=== PATIENT | male | born 1970 | race Caucasian/White ===

== ENCOUNTER 2025-02-06 04:09 | Emergency (ER) | payer BC, SELFPAY ==
[2025-02-06 04:12] VITALS: BP 148/88
[2025-02-06 04:29] VITALS: BMI 27.0
--- NOTE | 2025-02-06 04:35 | EDRN ---
Pt says 'It doesn't matter what facet of life it is it's just a snf and I'm going from snf to snf. It's a cycle I don't feel like continuing. Every turn I try to do something to make like better, there is someone there to pull the rug out
from under me.' Pt came to ED 'because I was thinking about suicide. My therapist told me if I have the thought I should come here. I'm a crazy fucked up person, thus here we are.' Pt admits to SI 'for years.' Pt has had a plan for 'awhile' and
says it is carbon monoxide poisoning. Pt denies doing anything tonight to hurt himself. CO poisoning is 'peaceful and no one gets hurt, there is no trauma.' Pt denies alcohol and drug intake 'but if you got some I will grab some.' Pt goes to
therapy. Outpatient, no inpatient treatment 'but that sound nice. I hope you guys don't kick me out of here anytime soon.' Pt lives with soon to be ex- and children. 'It's been prolonged stress over a period of time.' Pt is a electronic security technician
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 Pt says employer is pushing for a 4th day 'and that's fucked up my schedule.' This weekend, pt says his appetite has been 'a little crazy I could eat something now.' Pt has diabetes and tries to eat
healthy. Pt takes his medications intermittently, no consistency. Pt is supposed to check his blood sugar but he does not 'life is just too chaotic.' No AH/VH/HI. Pt adds he also has a lot of gym drama going on, financial issues also. No pain.
--- NOTE | 2025-02-06 04:43 | EDRN ---
Crisis called and informed of pt consult, pt is next to be seen.
[2025-02-06 05:06] LABS: Glucose - Point of Care 90 mg/dl (70-99)
--- NOTE | 2025-02-06 05:13 | EDRN ---
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
--- NOTE | 2025-02-06 06:26 | ED.GENMED ---
History of Present Illness
General
Chief Complaint: Suicidal Ideation
Source: patient
Time Seen by Provider: 02/06/25 05:41
Nursing documentation reviewed up to this point in time: agreed with
History of Present Illness
History of Present Illness:
Pleasant 54-year-old male presents to the emergency department with suicidal ideation his life has 'fallen apart '. He states that his is in the process of leaving him. Patient states that he has been confined by all facets of his life.
Patient came to the emergency department because he was thinking about suicide again. Patient states that he has had suicidal ideation for years. He does have a rolling plan to poison himself with carbon monoxide but states that he does not feel
that he can do it. He denies any suicide attempts recently. Patient denies alcohol or drug use. He works as a network security engineerrn security.
Review of Systems
Review of Systems
Allergies reviewed?: Yes
All Other Systems: ROS reviewed and negative except as documented in HPI and ROS
Psychiatric: Reports depression, anxiety and suicidal (Intent but no current plan); Denies hallucinations
Phy Exam
General Physical Exam
General Presentation: well appearing and no apparent distress
General Skin: warm and dry
General Habitus: normal
General Mental: alert
General Hydration: appears well hydrated
ENT Exam
ENT Exam: EOMI, pharynx normal, neck supple and normocephalic
Eye Exam
Eye Exam: PERRL, cornea clear and conjunctiva normal
Cardiovascular Exam
Cardiovascular Exam: regular rate/rhythm, no edema, no murmur and normal peripheral pulses
Pulmonary Exam
Pulmonary Exam: lungs clear, no respiratory distress, no rales, no crackles, no rhonchi, no stridor, no wheezing and no cough
Gastrointestinal Exam
Gastrointestinal Exam: normal bowel sounds, non tender, soft, no organomegaly, no pulsatile mass and non distended
Neurological Exam
Neurological Exam: alert, oriented x3, no motor deficits and speech normal
Musculoskeletal Exam
Musculoskeletal Exam: full ROM and no edema
Skin Exam
Skin Exam: normal color, warm/dry, no rash and no petechia
Psychiatric Exam
Psychiatric Exam: normal mood/affect and depressed
Course
Orders/Labs/Results
Orders:
Orders
02/06/25 04:15
1:1 Observation - Suicide/ Violent Behavior As Directed
Crisis Consult Urgent
Reason for Consult: SUICIDAL
Vital Signs
Initial and Last Documented VS:
Initial Vital Signs
Temp Pulse Resp BP Pulse Ox
98.2 F 54 20 148/88 98
02/06/25 04:12 02/06/25 04:12 02/06/25 04:12 02/06/25 04:12 02/06/25 04:12
Last Documented Vital Signs
Temp Pulse Resp BP Pulse Ox
98.2 F 54 20 148/88 98
02/06/25 04:12 02/06/25 04:12 02/06/25 04:12 02/06/25 04:12 02/06/25 04:12
*Pulse Oximetry
Patient hypoxic: no (98% on room air)
*Critical Care Note
Total Time (30-74mins, 75-104mins- exclusive of procedures): Not Applicable
ED Attending Note
-
Portions of this chart may have been created with voice recognition software.� Occasional wrong word or��sound alike� substitutions may have occurred due to the inherent limitations of voice recognition software.
Discharge Plan
Departure
Patient Disposition: Psych Facility
Date of Disposition: 02/06/25
Time of Disposition: 06:26
Patient Status:: 201
Condition: Good
Discharge Problem:
Depression with suicidal ideation
Instructions: Suicide Prevention, BLOOD PRESSURE
Prescriptions:
No Action
metformin 500 mg Tablet
500 mg PO BID
Drug Starts With 'I' For Heart
1 tab PO DAILY
Patient Comments:
pt does not know name of medication even after list of drugs provided
atorvastatin
1 tab PO DAILY
Patient Comments:
pt does not know mg
Referrals:
Eduar Rock MD [Family Provider, Internal Medicine]
Interventions
Interventions:
*Risk Screen - Suicide Last Done: 02/06/25 04:12
*General Assessment Last Done: 02/06/25 04:29
*Neglect/Abuse Screening Last Done: 02/06/25 04:12
*ED- Fall Risk Assessment Last Done: 02/06/25 04:34
ED-Psychological Assessment Last Done: 02/06/25 04:47
Discharge Date and Time
Print Language: [place]
[2025-02-06 09:55] LABS: Glucose - Point of Care 90 mg/dl (70-99)
== END 2025-02-06 10:45 ==
LOC: EMR 04:09
PROVIDERS: EMERGENCY PHYSICIAN Student in an Organized Health Care Education/Training Program; FAMILY PHYSICIAN Internal Medicine
DX: R45.851 Suicidal ideations (principal); F32.A Depression, unspecified; F41.9 Anxiety disorder, unspecified; Z63.5 Disruption of family by separation and divorce; I10 Essential (primary) hypertension; E11.9 Type 2 diabetes mellitus without complications
CPT/HCPCS: 99285; 82962